=== PATIENT | female | born 2000 | race Caucasian/White ===

== ENCOUNTER → 2021-11-05 09:23 | Outpatient (CLI) | payer OTHER, SELFPAY ==
[2021-11-05 10:45] LABS: Add Manual Diff / Slide Review NO; Basophils Absolute Auto 0 /uL (0-100); Basophils Percent Auto 0.6 % (0-2); Eosinophils Absolute Auto 100 /uL (0-450); Eosinophils Percent Auto 2.3 % (2-4); Hematocrit 42.4 % (36-46); Hemoglobin 14.7 g/dL (12.0-16.0); Lymphocytes Absolute Auto 1200 /uL (1100-4500); Lymphocytes Percent Auto 27.7 % (25-40); Mean Corpuscular HGB Conc 34.6 % (30-36); Mean Corpuscular Hemoglobin 30.8 PG (26-34); Mean Corpuscular Volume 88.8 fL (80-100); Monocytes Absolute Auto 400 /uL (0-900); Monocytes Percent Auto 8.7 % (3-14); Neutrophils Absolute Auto 2700 /uL (1500-7000); Neutrophils Percent Auto 60.7 % (50-75); Platelet Count 238 X10^3/uL (150-400); Red Blood Cell Count 4.78 X10^6/uL (4.0-5.2); Red Cell Distribution Width 12.9 % (11.6-14.8); White Blood Cell Count 4.4 X10^3/uL (4.5-11.0)
[2021-11-05 11:03] LABS: Alanine Aminotransferase 14 IU/L (<35); Albumin 4.8 g/dL (3.5-5.0); Albumin Globulin Ratio 1.4 (1.0-2.8); Alkaline Phosphatase 46 U/L (38-126); Aspartate Aminotransferase 26 IU/L (14-36); BUN Creatinine Ratio 24.1 (6-22); Bilirubin Total 0.8 mg/dL (0.2-1.3); Blood Urea Nitrogen 14 mg/dL (7-17); C-Reactive Protein Quant < 0.5 mg/dL (<1.0); Calcium 9.4 mg/dL (8.4-10.2); Carbon Dioxide 27 mmol/L (22-32); Chloride 103 mmol/L (98-107); Estimated Glomerular Filt Rate > 60.0 mL/min (>60); Globulin 3.4 g/dL (1.7-4.1); Glucose 79 mg/dL (70-100); HEMOLYSIS < 15 (0-50); Potassium 4.2 mmol/L (3.4-5.1); Sodium 138 mmol/L (137-145); Total Protein 8.2 g/dL (6.3-8.2)
[2021-11-05 11:07] LABS: Rheumatoid Factor < 8.6 IU/mL (<12.0)
[2021-11-05 11:14] LABS: Erythrocyte Sedimentation Rate 3 MM/HR (0-20)
[2021-11-05 11:16] LABS: Vitamin D 25 Hydroxy (D3) 25.7 ng/mL (30.0-100.0)
[2021-11-05 11:53] LABS: TSH w/ Reflex to FT4 1.27 uIU/mL (0.47-4.68)
[2021-11-07 16:07] LABS: ANA Screen, IFA Positive (.)
[2021-11-08 00:54] LABS: CCP Antibodies IgG/IgA 6 units (0-19)
== END ==
PROVIDERS: PCP Registered Nurse Diabetes Educator; Referring Provider Registered Nurse Diabetes Educator; Visit Provider Registered Nurse Diabetes Educator
DX: M25.50 Pain in unspecified joint (principal); M79.10 Myalgia, unspecified site; R21 Rash and other nonspecific skin eruption
CPT/HCPCS: 36415; 80053; 82306; 84443; 85025; 85651; 86038; 86140; 86200; 86430

== ENCOUNTER → 2022-02-04 09:54 | Outpatient (CLI) | payer OTHER, SELFPAY ==
--- NOTE | 2022-02-04 09:56 | DI.US.S_ITS ---
PROCEDURE: US PELVIC LIMITED INDICATIONS: EVAL R GROIN LYMPH NODE ENLARGEMENT TECHNIQUE: Real-time transabdominal scanning was performed of the area of clinical concern of the pelvis, with image documentation. Color Doppler was also utilized. COMPARISON: None. FINDINGS: At the area of clinical concern within the right groin, multiple prominent lymph nodes are seen, with the largest measuring 18 x 6 x 13 mm. The lymph nodes demonstrate a normal appearance, with well preserved fatty sintia. No abnormal vascularity is seen. IMPRESSION: Prominent right groin lymph nodes are seen, without cyrus enlargement. We strive to produce accurate, complete, and clear reports of imaging services. To assist us in improving patient care, this report was composed using standard report templates and voice recognition software. Therefore, it may contain abnormal punctuation, insertions and/or omissions. Occasional wrong-word or sound-alike substitutions may occur. Though we review the report and make efforts to correct it, we do recommend that the report be read carefully in proper context to recognize any text inaccuracies. Dictated by: Solomon Salas M.D. on 02/04/2022 at 12:27 Approved by: Solomon Salas M.D. on 02/04/2022 at 12:28
== END ==
PROVIDERS: PCP Registered Nurse Diabetes Educator; Referring Provider Registered Nurse Diabetes Educator; Visit Provider Registered Nurse Diabetes Educator
DX: R59.1 Generalized enlarged lymph nodes (principal)
CPT/HCPCS: 76857

== ENCOUNTER → 2022-02-23 16:06 | Outpatient (CLI) | payer OTHER, SELFPAY ==
[2022-02-23 16:44] LABS: Add Manual Diff / Slide Review NO; Basophils Absolute Auto 0 /uL (0-100); Basophils Percent Auto 0.9 % (0-2); Eosinophils Absolute Auto 100 /uL (0-450); Eosinophils Percent Auto 2.5 % (2-4); Hemoglobin 14.2 g/dL (12.0-16.0); Lymphocytes Absolute Auto 1600 /uL (1100-4500); Lymphocytes Percent Auto 31.1 % (25-40); Mean Corpuscular HGB Conc 33.9 % (30-36); Mean Corpuscular Hemoglobin 30.5 PG (26-34); Mean Corpuscular Volume 89.9 fL (80-100); Monocytes Absolute Auto 400 /uL (0-900); Monocytes Percent Auto 8.1 % (3-14); Neutrophils Absolute Auto 2900 /uL (1500-7000); Neutrophils Percent Auto 57.4 % (50-75); Platelet Count 292 X10^3/uL (150-400); Red Blood Cell Count 4.67 X10^6/uL (4.0-5.2); Red Cell Distribution Width 12.8 % (11.6-14.8); White Blood Cell Count 5.1 X10^3/uL (4.5-11.0)
[2022-02-23 17:22] LABS: Vitamin D 25 Hydroxy (D3) 40.5 ng/mL (30.0-100.0)
== END ==
PROVIDERS: PCP Registered Nurse Diabetes Educator; Referring Provider Registered Nurse Diabetes Educator; Visit Provider Registered Nurse Diabetes Educator
DX: R59.1 Generalized enlarged lymph nodes (principal); E55.9 Vitamin D deficiency, unspecified
CPT/HCPCS: 36415; 82306; 85025

== ENCOUNTER → 2022-03-09 15:41 | Outpatient (CLI) | payer OTHER, SELFPAY ==
[2022-03-09 18:00] LABS: COVID19 -Nasal RAPID Negative (Negative)
== END ==
PROVIDERS: PCP Registered Nurse Diabetes Educator; Visit Provider Surgery
DX: Z20.822 Contact with and (suspected) exposure to COVID-19 (principal); Z01.812 Encounter for preprocedural laboratory examination
CPT/HCPCS: 87635; C9803

== ENCOUNTER 2022-03-10 14:31 | Day surgery (SDC) | payer OTHER, SELFPAY ==
[2022-03-04 14:23] VITALS: BMI 20.9
[2022-03-10] VITALS (7 sets, daily range): BP systolic 94–126; BP diastolic 54–85; PULSE 59–99; RESP 12–16; TEMP 36.6–37.2; O2SAT 96–99; BMI 20.9
--- NOTE | 2022-03-10 | PATH_ITS ---
[facility] Accession Number: [id number] No. of containers..02 Tissue 04 Unknown Storage/container code(s) . 01 Material submitted: . PART A: lymph node - RIGHT GROIN LYMPH NODE (FORMALIN) PART B: lymph node - RIGHT GROIN LYMPH NODE (B-FIX) . 01 Diagnosis: A,B. Right Groin Lymph Node; Biopsy and Touch Prep Slides: Benign lymph node with reactive sinus histiocytosis, see microscopic description. Negative for granulomatous or suppurative inflammation. Negative for malignancy. MRV 03/16/2022 1505 Local . 01 Electronically signed: . Earnest Leiva MD, Pathologist NPI- [id number] . 01 Gross description: . A. Received in formalin labeled with the patient's name and right groin lymph node consists of a johnson lymph node candidate measuring 0.8 x 0.5 x 0.4 cm and is bisected and submitted entirely in cassette A1. ([id number]) B. Received in B Fix fixative, labeled with the patient's name and lymph node biopsy consists of a johnson lymph node candidate with a small amount of attached adipose measuring 1.1 x 0.9 x 0.8 cm. The specimen is bisected and submitted entirely in cassette B1. ([id number]) /MRV 03/12/2022 1706 Local . 01 Microscopic: . Examination of the lymph node reveals reactive features: open sinuses with reactive histiocytosis, and follicles with reactive germinal centers. There are scattered histocytes and pigment-laden macrophages (favor tattoo pigment). Atypical or large lymphocytes and Hodgkin cells/Hodgkin-like cells are not identified. Granulomas are not present. Suppurative inflammation or necrosis not seen. . To better evaluate the architecture and better characterize the lymphocyte populations, a panel of immuostains is performed with the following results: . CD3: T lymphocytes positive. CD20: B lymphocytes positive. CD15: Small myeloid cells and macrophages positive, negative for Hogdkin cells. CD30: Activated lymphocytes positive, negative for Hodgkin cells. CD68: Histiocytes positive. BCL6: Lymphoid follicles positive. BCL2: Germinal centers of the reactive follicles negative. Proliferation marker Ki-67: Overall low (increased, limited within the reactive germinal centers). . Concurrent flow cytometry did not identify definitive diagnostic immunophenotypic abnormalities; there was no evidence of atypical B cell, NK cell, or T cell population. . Please see complete flow cytometry report #[id number] for details. . Based on morphology and immunohistochemistry (flow cytometry and immunostains), there is no malignancy. . Clinical and radiologic correlation is recommended. . * This test was developed and its performance characteristics determined by [facility]. It has not been cleared or approved by the U.S. Food and Drug Administration. The FDA has determined that such clearance or approval is not necessary. This test is used for clinical purposes. It should not be regarded as investigational or for research. . 01 Pathologist provided ICD-10: R59.0 . 01 CPT . 779852, F77510, D68974 Specimen Comment: A courtesy copy of this report has been sent to [phone] Performed at: 01 [facility] [address] [place] [address], [place], [place] [id number] MD Severo Barrett MD Phone: [phone]
[2022-03-10] MEDS: LACTATED RINGERS 1,000 ML 100 ML IV (14:56)
--- NOTE | 2022-03-10 15:27 | PM.PREOP ---
Pre-operative Note Interval Note History & Physical reviewed/Exam performed by Physician: Yes Changes to H&P: No
[2022-03-10] MEDS: CEFAZOLIN 2 GM/20 ML SYRINGE IV (15:40)
--- NOTE | 2022-03-10 15:54 | SUR.OPER ---
Supine on padded OR bed, head on pillow, arms secured on padded arm boards at <90 degrees abduction, legs uncrossed, safety belt at thigh, tape over blanket over lower legs.
[2022-03-10] MEDS: BUPIVACAINE 0.5% (PF) VIAL 30 ML INJ (16:04)
--- NOTE | 2022-03-10 16:15 | PM.OP.1 ---
Operative Date/Time/Diagnoses Date of procedure: 03/10/22 Time of procedure: 16:16 Pre-op diagnosis: lymphadenopathy of groin Post-op diagnosis: same Procedure & Clinicians Procedure: Excisional biopsy of right groin lymph node Same procedure as scheduled: Yes Indications: Right groin lymphadenopathy Surgeon: Mansoor Rodgers Anesthesia Type: General Operative Notes Findings: Enlarged lymph nodes of the right groin Specimen(s): other (Right groin lymph node) Estimated Blood Loss (mL): 10 Procedure in detail: Patient was brought to the operating room placed supine on the table. Bilateral lower extremity compression devices were applied. She received 2 g of Ancef. General anesthesia was induced she was intubated with an LMA. A time-out was performed. She was prepped and draped in sterile fashion. Incision over the right groin lymph nodes was made. The subcutaneous tissue was divided. There was a rather superficial bulky lymph node of approximately 1.5 cm. Base of the lymph node was ligated with silk suture and that was excised passed off the field as specimen. Hemostasis was achieved. The subcutaneous tissue was reapproximated with Vicryl suture and the skin closed with Monocryl followed by Dermabond. She tolerated the operation well was extubated and transferred to recovery room. Complications: none Post-operative Condition: stable Disposition: same day surgery
--- NOTE | 2022-03-10 16:54 | SUR.PHASEII ---
1645: Discharge instructions reviewed with pt and time allowed for questions. Pt denies any distress, no pain, no nausea, and desires to discharge home now. Sister updated. IV DC'd intact. Incision approximated, dressing c/d/i. Pt left unit A&Ox4 with all personal belongings via w/c to emergency entrance to meet family who will transport pt home.
== END 2022-03-10 16:49 | disposition home or self-care (01) ==
PROVIDERS: PCP Registered Nurse Diabetes Educator; Referring Provider Surgery; Visit Provider Surgery
PROC: (CPT 38531; principal; 2022-03-10 16:00)
DX: R59.0 Localized enlarged lymph nodes (principal); F17.200 Nicotine dependence, unspecified, uncomplicated
CPT/HCPCS: 38531; 81025; J0690; J1100; J1885; J2250; J2405; J2704; J3010

== ENCOUNTER → 2022-08-24 10:45 | Outpatient (CLI) | payer OTHER, SELFPAY ==
[2022-08-24 18:36] LABS: Urine N gonorrhoeae NOT DETECTED
[2022-08-24 18:46] LABS: Urine Chlamydia NOT DETECTED
== END ==
PROVIDERS: PCP Registered Nurse Diabetes Educator; Visit Provider Obstetrics & Gynecology
DX: Z34.81 Encounter for supervision of other normal pregnancy, first trimester (principal); Z3A.09 9 weeks gestation of pregnancy
CPT/HCPCS: 87491; 87591

== ENCOUNTER 2022-10-06 09:56 | Outpatient (RCR) | payer OTHER, SELFPAY ==
--- NOTE | 2022-10-06 16:45 | PT.OPPOC ---
Physical, Occupational & Speech Therapy At [facility] Current Diagnoses Pain in unspecified hip (10/06/22) Low back pain, unspecified (10/06/22) Other specified related conditions, second trimester (10/06/22) Other specified related conditions, unspecified trimester (10/06/22) Visit Care Team Role Provider Type LEXIS Wolf Family Provider Advanced Director Of Solutions Architecture Primary Care Provider Specialty: Medical Address: [address] [place] [address], [id number] Email: [email or web address] Bhavna Jett MD Attending Provider Physician Referring Provider Specialty: Gynecology TOY ASSEMBLER Obstetrics Address: [address] [place] [address], [id number] Email: [email or web address] Plan Of Care PT-OP-T Assessment and Plan Start: 10/06/22 09:43 Freq: Status: Active Protocol: Document 10/06/22 10:30 [facility] (Rec: 10/06/22 11:01 [facility] [id number]) Physical Therapy Assessment Rehab Potential Rehabilitation Potential Excellent Evaluation Complexity Number of Personal Factors/Comorbidities 0 Number of Body Systems Impaired 1-2 Clinical Presentation at Evaluation Stable Impairments Impairments Activity Tolerance,Functional Mobility,Pain,ROM,Soft Tissue Mobility,Strength Other Impairments pubic symphysis pain Goals 3 Impairment Tatiana lacks a HEP for her core during Prison Guard Goal (LTG) Tatiana is independent with a home program to help minimize pain to the pubic bone and separation during her and post LTG Duration 12 weeks 2 Impairment Decreased SI stability in Short Term Goal (STG) Tatiana is educated in SI and pubic symphysis stabilization exercises for STG Duration 5 weeks 1 Impairment pubic symphysis pain limiting walking and lifting Short Term Goal (STG) pt is fitting with a SI lock belt to help stabilize the pubic bone and SI joint during STG Duration 1 week Assessment Summary Assessment Tatiana is a 22 year old female 3 para 1 referred to PT with pubic bone pain and separation during . She is currently 15 1/2 weeks gestation and is starting to feel the pubic symphysis pain that she reports feeling with her first full term . She reports that pubic symptoms came on in the latera part of her third trimester. She would like to be fitted for a SI belt to help alleviate pain and to avoid further symptoms . 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 Left leg is longer than right in supine. She does have tenderness to the right pubic bone with palpation. She was educated in both pelvic floor bracing and Transverse abdominal bracing to help stabilize the pubic bone and SI joint. Body mechanics education was given to Tatiana to avoid undue stress to the pubic bone. Tatiana was fitted with a size medium SI lock belt and she could feel good relief with the belt. Tatiana does have further visits scheduled however she didn't know if she would need them. She may benefit from further stabilization and she will let us know should she wish to continue with PT. Physical Therapy Plan Frequency and Duration Frequency of Treatment 1x/Week Duration of treatment (weeks) 12 Plan of Care Start Date 10/06/22 Plan of Care End Date 12/29/22 Therapeutic Interventions Therapeutic Interventions Home Exercise Program, Neuromuscular Re-education, Patient/Caregiver Education, Self-Care/Home Management, Therapeutic Exercises Next Visit Focus/Plan Next Note Type Treatment Note Next Visit Plan review TA bracing and pelvic floor bracing exercises, recheck leg length and how SI belt is doing to help relieve pain, review body mechanics for ADL's to minimize strain to the pubic bone, progress exercises if Tatiana can tolerate. Plan of Care Dates Plan of Care Start Date 10/06/22 Plan of Care End Date 12/29/22 Electronically Signed by: Lois Manuel, PT 10/07/22 5050 If you are in agreement with this Plan of Care, please return a signed and dated copy. I have reviewed this Plan of Care and certify that the skilled therapy services above are required to meet the patient?s needs. Physician Signature Date Printed Name and Credentials Clinical Instructor Signature Printed Name and Credentials
--- NOTE | 2022-10-06 16:45 | PT.OIE ---
Current Diagnoses Pain in unspecified hip (10/06/22) Low back pain, unspecified (10/06/22) Other specified related conditions, second trimester (10/06/22) Other specified related conditions, unspecified trimester (10/06/22) Past Medical History (Last Updated 08/09/22 @ 10:41 by Barbara Fuentes, ROMAIN) Anxiety Asthma (~2004) Chronic back pain (~2017) Easy bruisability Eczema (~1998) Fibromyalgia (~2017) Headache (~2015) Migraines (~2015) induced hypertension Vitiligo (~2019) Past Surgical History (Last Updated 08/09/22 @ 10:41 by Barbara Fuentes, ROMAIN) H/O lymph node biopsy Visit Care Team Role Provider Type LEXIS Wolf Family Provider Advanced Bee Raiser Primary Care Provider Specialty: Medical Address: [address] [place] [address] Email: [email or web address] Bhavna Jett MD Attending Provider Physician Referring Provider Specialty: Gynecology SAFETY ENGINEER Obstetrics Address: [address] [place] [address], [facility] Email: [email or web address] Physical Therapy Initial Evaluation PT-OP-A Visit Information Start: 10/06/22 09:43 Freq: Status: Active Protocol: Document 10/06/22 10:30 [facility] (Rec: 10/06/22 13:57 [facility] [id number]) Out-Patient Physical Therapy Visit Information Visit Information Visit Type Initial Evaluation Visit Start Time 10:30 Visit Stop Time 11:10 Total Visit Minutes 40 Visit Number 1 Evaluation Information Evaluation Date 10/06/22 PT-OP-B Current Condition Start: 10/06/22 09:43 Freq: Status: Active Protocol: Document 10/06/22 10:30 [facility] (Rec: 10/06/22 11:01 [facility] [id number]) Current Condition History of Current Condition Onset Date with Current Complaints pubic symphysis pain and limited mobility due to pain History of Current Condition Tatiana is 3 para 1 and currently 15.5 weeks experiencing pubic symphysis pain. With her son pain didn't start until late second trimester. With this her pain starting already she feels pain at the pubic bone already and it feels lke it is being seperated. She has a 30 lb 2. 5 year old and has to lift him but she notes she isn't doing any thing extra. SHe was told when she was younger that one leg was longer than the other. Tatiana would like to be fitted with a SI belt to help with her pubic pain Treatment Goals Patient/Caregiver Goals Goals include reducing c/o pubic pain Current Functional Impairments (Reported) Functional Limitations- ADL's pt is increased with lifting activities Functional Limitations- Mobility/Gait pain prevents pt from walingmore than 1 mile PT-OP-C Subjective Start: 10/06/22 09:43 Freq: Status: Active Protocol: Document 10/06/22 10:30 [facility] (Rec: 10/07/22 16:45 [facility] [id number]) Patient Questionnaires Oswestry Low Back Index Oswestry Score 11 Oswestry Impairment 1 to 19% Impaired (Score 1-19) OP-PT Pain Assessment Pain Assessment Grid Paper Pain Assessment Grid Completed Yes Location pubic symphysis Intensity 5 PT-OP-F Manual Assessment Start: 10/06/22 09:43 Freq: Status: Active Protocol: Document 10/06/22 10:30 [facility] (Rec: 10/07/22 16:45 [facility] [id number]) Manual Assessments Joint Mobility Assessment Joint Mobility Assessment instability of the pubic symphysis and SI joint with + ASLR test left leg is longer than right in supine PT-OP-G Mobility & Gait Start: 10/06/22 09:43 Freq: Status: Active Protocol: Document 10/06/22 10:30 [facility] (Rec: 10/07/22 16:45 [facility] [id number]) OP Mobility Evaluation Bed Mobility Supine to and from Sit pt has pain and needs to roll to her side to side up as to avoid undue strain to the pubic symphysis Stair Climbing Evaluation Comments Stair Climbing Comments pain with stairs PT-OP-J Posture/Palpation/Skin Start: 10/06/22 09:43 Freq: Status: Active Protocol: Document 10/06/22 10:30 [facility] (Rec: 10/07/22 16:45 [facility] [id number]) Palpation Assessment Location right pubic bone Palpation Location right pubic bone Palpation Findings Tenderness PT-OP-Q Treatments Start: 10/06/22 09:43 Freq: Status: Active Protocol: Document 10/06/22 10:30 [facility] (Rec: 10/06/22 11:14 [facility] [id number]) Therapeutic Exercises Supine Exercises supine ball squeeze with pelvic floor activation Side bilateral Reps/Minutes x 10 reps holding 5 seconds with pelvic floor engagement Comments shown in supine but pt can also do sitting once supine is not comfortable Other Exercises quadruped TA draw in Reps/Minutes x 10 reps working up to 10 second hold time Self-Care/Home Management Treatment Education Patient Education Joint Protection Other Education pt was educated on body mechanics to help decrease strain to the SI joint and pubic bone, she was fitted with a size medium SI belt for assistance with SI stabilization and pubic stability. Tatiana was also educated with a HEP for inner core stabiilzation exercises to help with SI stability PT-OP-T Assessment and Plan Start: 10/06/22 09:43 Freq: Status: Active Protocol: Document 10/06/22 10:30 [facility] (Rec: 10/06/22 11:01 [facility] [id number]) Physical Therapy Assessment Rehab Potential Rehabilitation Potential Excellent Evaluation Complexity Number of Personal Factors/Comorbidities 0 Number of Body Systems Impaired 1-2 Clinical Presentation at Evaluation Stable Impairments Impairments Activity Tolerance,Functional Mobility,Pain,ROM,Soft Tissue Mobility,Strength Other Impairments pubic symphysis pain Goals 3 Impairment Tatiana lacks a HEP for her core during Horticultural Special[employer] Grower Field Goal (LTG) Tatiana is independent with a home program to help minimize pain to the pubic bone and seperation during her and post LTG Duration 12 weeks 2 Impairment Decreased SI stability in Short Term Goal (STG) Tatiana is educated in SI and pubic symphysis stabilization exercises for STG Duration 5 weeks 1 Impairment pubic symphysis pain limiting walking and lifting Short Term Goal (STG) pt is fitting with a SI lock belt to help stabilize the pubic bone and SI joint during STG Duration 1 week Assessment Summary Assessment Tatiana is a 22 year old female 3 para 1 referred to PT with pubic bone pain and seperation during . She is currently 15 1/2 weeks gestation and is starting to feel the pubic symphysis pain that she reports feeling with her first full term . She reports that pubic symptoms came on in the latera part of her third trimester. She would like to be fitted for a SI belt to help alliviate pain and to avoid further symptoms . 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 Left leg is longer than right in supine. She does have tenderness to the right pubic bone with palpation. She was educated in both pelvic floor bracing and Transverse abdominal bracing to help stabilize the pubic bone and SI joint. Body mechanics education was given to Tatiana to avoid undue stress to the pubic bone. Tatiana was fitted with a size medium SI lock belt and she could feel good relief with the belt. Tatiana does have further visits scheduled however she didn't know if she would need them. She may benefit from further stabilization and she will let us know should she wish to continue with PT. Physical Therapy Plan Frequency and Duration Frequency of Treatment 1x/Week Duration of treatment (weeks) 12 Plan of Care Start Date 10/06/22 Plan of Care End Date 12/29/22 Therapeutic Interventions Therapeutic Interventions Home Exercise Program, Neuromuscular Re-education, Patient/Caregiver Education, Self-Care/Home Management, Therapeutic Exercises Next Visit Focus/Plan Next Note Type Treatment Note Next Visit Plan review TA bracing and pelvic floor bracing exercises, recheck leg length and how SI belt is doing to help relieve pain, review body mechanics for ADL's to minimize strain to the pubic bone, progress exercises if Tatiana can tolerate.
--- NOTE | 2022-11-16 17:04 | PT.OPDS ---
Current Diagnoses Pain in unspecified hip (10/06/22) Low back pain, unspecified (10/06/22) Other specified related conditions, second trimester (10/06/22) Other specified related conditions, unspecified trimester (10/06/22) Visit Care Team Role Provider Type LEXIS Wolf Family Provider Advanced Hr Director Primary Care Provider Specialty: Medical Address: [address] [place] [address] Email: [email or web address] Bhavna Jett MD Attending Provider Physician Referring Provider Specialty: Gynecology [employer] [facility] Address: [address] [place] [address], [id number] Email: [email or web address] Visit Number Visit Number 1 Discharge Summary PT-OP-B Current Condition Start: 10/06/22 09:43 Freq: Status: Active Protocol: Document 10/06/22 10:30 [facility] (Rec: 10/06/22 11:01 [facility] [id number]) Current Condition History of Current Condition Onset Date with Current Complaints pubic symphysis pain and limited mobility due to pain History of Current Condition aTtiana is 3 para 1 and currently 15.5 weeks experiencing pubic symphysis pain. With her son pain didn't start until late second trimester. With this her pain starting already she feels pain at the pubic bone already and it feels lke it is being seperated. She has a 30 lb 2. 5 year old and has to lift him but she notes she isn't doing any thing extra. SHe was told when she was younger that one leg was longer than the other. Tatiana would like to be fitted with a SI belt to help with her pubic pain Treatment Goals Patient/Caregiver Goals Goals include reducing c/o pubic pain Current Functional Impairments (Reported) Functional Limitations- ADL's pt is increased with lifting activities Functional Limitations- Mobility/Gait pain prevents pt from walingmore than 1 mile PT-OP-C Subjective Start: 10/06/22 09:43 Freq: Status: Active Protocol: Document 10/06/22 10:30 [facility] (Rec: 10/07/22 16:45 [facility] [id number]) Patient Questionnaires Oswestry Low Back Index Oswestry Score 11 Oswestry Impairment 1 to 19% Impaired (Score 1-19) OP-PT Pain Assessment Pain Assessment Grid Paper Pain Assessment Grid Completed Yes Location pubic symphysis Intensity 5 PT-OP-F Manual Assessment Start: 10/06/22 09:43 Freq: Status: Active Protocol: Document 10/06/22 10:30 [facility] (Rec: 10/07/22 16:45 [facility] [id number]) Manual Assessments Joint Mobility Assessment Joint Mobility Assessment instability of the pubic symphysis and SI joint with + ASLR test left leg is longer than right in supine PT-OP-G Mobility & Gait Start: 10/06/22 09:43 Freq: Status: Active Protocol: Document 10/06/22 10:30 [facility] (Rec: 10/07/22 16:45 [facility] [id number]) OP Mobility Evaluation Bed Mobility Supine to and from Sit pt has pain and needs to roll to her side to side up as to avoid undue strain to the pubic symphysis Stair Climbing Evaluation Comments Stair Climbing Comments pain with stairs PT-OP-J Posture/Palpation/Skin Start: 10/06/22 09:43 Freq: Status: Active Protocol: Document 10/06/22 10:30 [facility] (Rec: 10/07/22 16:45 [facility] [id number]) Palpation Assessment Location right pubic bone Palpation Location right pubic bone Palpation Findings Tenderness PT-OP-T Assessment and Plan Start: 10/06/22 09:43 Freq: Status: Active Protocol: Document 11/16/22 17:03 [facility] (Rec: 11/16/22 17:04 [facility] [id number]) Physical Therapy Assessment Assessment Summary Assessment Pt no longer required additional PT following SI belt fitting. She has cx her remaining visits and will be discharged from PT at this time. Physical Therapy Plan Discharge Physical Therapy Discharge Reasons Patient Request
== END 2022-11-17 13:13 | disposition home or self-care (01) ==
LOC: PHYS 09:56
PROVIDERS: Family Provider Registered Nurse Diabetes Educator; PCP Registered Nurse Diabetes Educator; Referring Provider Obstetrics & Gynecology; Visit Provider Obstetrics & Gynecology
DX: O26.892 Other specified pregnancy related conditions, second trimester (principal); M25.559 Pain in unspecified hip; O26.899 Other specified pregnancy related conditions, unspecified trimester; M54.50 Low back pain, unspecified
CPT/HCPCS: 97161

== ENCOUNTER → 2022-11-01 11:21 | Outpatient (CLI) | payer OTHER, SELFPAY | PROVIDERS: Family Provider Registered Nurse Diabetes Educator; PCP Registered Nurse Diabetes Educator; Visit Provider Obstetrics & Gynecology | DX: Z34.81 Encounter for supervision of other normal pregnancy, first trimester (principal) | CPT/HCPCS: 87086 ==

== ENCOUNTER → 2022-11-01 11:54 | Outpatient (CLI) | payer OTHER, SELFPAY ==
[2022-11-01 12:29] LABS: Add Manual Diff / Slide Review NO; Basophils Absolute Auto 0 /uL (0-100); Basophils Percent Auto 0.4 % (0-2); Eosinophils Absolute Auto 100 /uL (0-450); Eosinophils Percent Auto 1.2 % (2-4); Hematocrit 36.6 % (36-46); Hemoglobin 12.8 g/dL (12.0-16.0); Lymphocytes Absolute Auto 1300 /uL (1100-4500); Lymphocytes Percent Auto 15.4 % (25-40); Mean Corpuscular Hemoglobin 31.3 PG (26-34); Mean Corpuscular Volume 89.5 fL (80-100); Monocytes Absolute Auto 600 /uL (0-900); Monocytes Percent Auto 6.7 % (3-14); Neutrophils Absolute Auto 6600 /uL (1500-7000); Neutrophils Percent Auto 76.3 % (50-75); Platelet Count 319 X10^3/uL (150-400); Red Blood Cell Count 4.09 X10^6/uL (4.0-5.2); Red Cell Distribution Width 13.4 % (11.6-14.8); White Blood Cell Count 8.6 X10^3/uL (4.5-11.0)
[2022-11-01 13:46] LABS: Hepatitis B Surface Antigen NEGATIVE s/c (NEGATIVE)
[2022-11-01 13:47] LABS: HIV 1 & 2 Ab/Ag 4th Gen Combo NEGATIVE (NEGATIVE); Hep C Virus Ab w/Reflex Quant NEGATIVE s/c (NEGATIVE)
[2022-11-02 07:45] LABS: Varicella IgG Antibody 953 index (Immune >165)
[2022-11-03 03:20] LABS: RPR Screen Non Reactive (Non Reactive)
[2022-11-04 20:19] LABS: AFP, Serum 32.6 ng/mL (.); Inhibin A, Dimeric 165.48 pg/mL (.); Inhibin A, MoM 1.08 (.); Maternal Ethnicity Caucasian (.); Maternal Weight 179 lbs (.); Number of Fetuses No (.); OSBR Risk 1 IN 10000 (.); Results Report (.); Test Results *Screen Negative* (.); hCG, MoM 1.41 (.); hCG, Serum 34690 mIU/mL (.)
== END ==
PROVIDERS: Family Provider Registered Nurse Diabetes Educator; PCP Registered Nurse Diabetes Educator; Referring Provider Obstetrics & Gynecology; Visit Provider Obstetrics & Gynecology
DX: Z34.82 Encounter for supervision of other normal pregnancy, second trimester (principal); Z3A.19 19 weeks gestation of pregnancy
CPT/HCPCS: 36415; 80055; 82105; 82677; 84702; 86336; 86787; 86803; 86850; 86900; 86901; 87086; 87389

== ENCOUNTER → 2022-11-05 07:42 | Outpatient (CLI) | payer OTHER, SELFPAY ==
--- NOTE | 2022-11-05 07:43 | DI.US.S_ITS ---
PROCEDURE: US OB >= 14 WEEKS FETUS INDICATIONS: ANATOMY OUTSIDE/PRIOR DATING DATA: Last menstrual period (LMP): 06/19/2022. LMP-based estimated date of delivery (JANICE): 03/26/2023. First dating scan (date and location): 08/24/2022. Estimated date of delivery (JANICE) from first dating scan: 03/26/2023. The calculations are made using the clinical JANICE of 03/26/2023. TECHNIQUE: Real-time scanning was performed of the fetus, with image documentation and biometric measurements. COMPARISON: [facility], , OB <= 14 WEEKS FETUS, 08/24/2022, 9:33. FINDINGS: General: A single living intrauterine gestation is present. Presentation: Vertex. Placenta: Placental position is posterior , without previa. Amniotic fluid index: 15.9 cm, normal range is 5-24 cm. Single deepest vertical pocket is 4.7 cm. heart rate: 133 beats per minute. Maternal cervical canal: 4.5 cm long. Normal lower limit is 2.5 cm. Anterior lower uterine segment intramural fibroid measuring 0.9 x 0.8 x 0.5 cm biometrics: Biparietal diameter: 4.9 cm, 20 weeks 6 days Head circumference: 17.6 cm, 20 weeks 1 day Abdominal circumference: 14.9 cm, 20 weeks 1 day Femur length: 3.4 cm, 20 weeks 6 days Clinically estimated gestational age: 19 weeks 6 days Composite gestational age from present scan: 20 weeks 4 days Estimated weight and percentile: 353 g, 78th percentile Anatomic survey: Neuro: Ventricles are non-dilated at less than 10 mm. Cisterna magna is normal at 3-11 mm. Cerebellum is normal in size and morphology. Nuchal skin fold: Normal at less than 6 mm between 14-21 weeks gestational age. Face: Nose and lips, facial profile are normal. Spine: No evidence for spina bifida. Heart: 4-chambered heart is present, with normal ventricular outflow tracts. Diaphragm: Diaphragm is intact. Stomach: Left-sided stomach is present. Kidneys: No hydronephrosis. Normal is less than 5 mm in 2nd trimester, less than 7 mm in 3rd trimester. Cord: 3-vessel cord has orthotopic insertion. Bladder: Normal in size. Extremities: All 4 extremities identified. IMPRESSION: 1. Mcclure living intrauterine at 20 weeks 4 days based on today's ultrasound. Fetus is in the 78th percentile for weight. 2. Normal placenta and amniotic fluid. 3. Normal and complete anatomic survey. We strive to produce accurate, complete, and clear reports of imaging services. To assist us in improving patient care, this report was composed using standard report templates and voice recognition software. Therefore, it may contain abnormal punctuation, insertions and/or omissions. Occasional wrong-word or sound-alike substitutions may occur. Though we review the report and make efforts to correct it, we do recommend that the report be read carefully in proper context to recognize any text inaccuracies. Dictated by: Brennon Lyle M.D. on 11/05/2022 at 9:18 Approved by: Brennon Llye M.D. on 11/05/2022 at 9:24
== END ==
PROVIDERS: Family Provider Registered Nurse Diabetes Educator; PCP Registered Nurse Diabetes Educator; Referring Provider Obstetrics & Gynecology; Visit Provider Obstetrics & Gynecology
DX: Z34.82 Encounter for supervision of other normal pregnancy, second trimester (principal); Z3A.20 20 weeks gestation of pregnancy
CPT/HCPCS: 76811

== ENCOUNTER → 2022-12-20 08:23 | Outpatient (CLI) | payer OTHER, SELFPAY ==
[2022-12-20 10:29] LABS: GTT (PREG) 1 Hour PP 50gm Dose 83 mg/dL (76-139)
[2022-12-20 10:48] LABS: Hematocrit 34.3 % (36-46); Hemoglobin 11.7 g/dL (12.0-16.0)
== END ==
PROVIDERS: Family Provider Registered Nurse Diabetes Educator; PCP Registered Nurse Diabetes Educator; Referring Provider Obstetrics & Gynecology; Visit Provider Obstetrics & Gynecology
DX: Z34.82 Encounter for supervision of other normal pregnancy, second trimester (principal); Z3A.26 26 weeks gestation of pregnancy
CPT/HCPCS: 36415; 82950; 85014; 85018

== ENCOUNTER 2022-12-28 17:53 | Outpatient (CLI) | payer OTHER, SELFPAY | END 2022-12-28 19:01 | disposition home or self-care (01) | LOC: OB 01-03 15:53 | PROVIDERS: Family Provider Registered Nurse Diabetes Educator; PCP Registered Nurse Diabetes Educator; Referring Provider Obstetrics & Gynecology; Visit Provider Obstetrics & Gynecology | DX: O60.02 Preterm labor without delivery, second trimester (principal); Z3A.27 27 weeks gestation of pregnancy | CPT/HCPCS: 59025; 76817; G0378; G0379 ==

== ENCOUNTER 2022-12-29 16:07 | Observation (INO) | payer OTHER, SELFPAY ==
--- NOTE | 2022-12-29 16:23 | DI.US.S_ITS ---
PROCEDURE: US OB LIMITED INDICATIONS: TO CHECK FOR LABOR, CERVICAL LENGTH OUTSIDE/PRIOR DATING DATA: Last menstrual period (LMP): 06/19/2022. LMP-based estimated date of delivery (JANICE): 03/26/2023. First dating scan (date and location): 08/24/2022. Estimated date of delivery (JANICE) from first dating scan: 03/26/2023. The calculations are made using the working JANICE of 03/26/2020. TECHNIQUE: Real-time scanning was performed of the fetus, with image documentation and biometric measurements. Biophysical profile was also obtained. Endovaginal scanning: Not performed COMPARISON: [facility], , US OB >= 14 WEEKS FETUS, 11/05/2022, 7:48. [facility], , US OB <= 14 WEEKS FETUS, 08/24/2022, 9:33. , PELVIC LIMITED, 02/04/2022, 10:14. FINDINGS: General: A single living intrauterine gestation is present. Presentation: Breech. Placenta: Posterior without previa. Amniotic fluid index: 22.6 cm, normal range is 5-24 cm. Single deepest vertical pocket is 6.9 cm. heart rate: 133 beats per minute. Maternal cervical canal: 4.1 cm long. Normal lower limit is 2.5 cm. Trace fluid within the endocervical canal. biometrics: Not performed. Clinically estimated gestational age: 27 weeks 4 days IMPRESSION: 1. A single living intrauterine gestation is redemonstrated. 2. Normal cervical length measuring 4.1 cm. Trace fluid within the endocervical canal. We strive to produce accurate, complete, and clear reports of imaging services. To assist us in improving patient care, this report was composed using standard report templates and voice recognition software. Therefore, it may contain abnormal punctuation, insertions and/or omissions. Occasional wrong-word or sound-alike substitutions may occur. Though we review the report and make efforts to correct it, we do recommend that the report be read carefully in proper context to recognize any text inaccuracies. Dictated by: Deon Villarreal M.D. on 12/29/2022 at 19:13 Approved by: Deon Villarreal M.D. on 12/29/2022 at 19:16
[2022-12-29 18:29] LABS: Fetal Fibronectin Negative
== END 2022-12-29 19:05 | disposition home or self-care (01) ==
PROVIDERS: Admitting Provider Obstetrics & Gynecology; Family Provider Registered Nurse Diabetes Educator; PCP Registered Nurse Diabetes Educator; Referring Provider Obstetrics & Gynecology; Visit Provider Obstetrics & Gynecology
DX: Z03.71 Encounter for suspected problem with amniotic cavity and membrane ruled out (principal); O26.892 Other specified pregnancy related conditions, second trimester; R10.2 Pelvic and perineal pain; N89.8 Other specified noninflammatory disorders of vagina; Z3A.27 27 weeks gestation of pregnancy
CPT/HCPCS: 59025; 59050; 76815; 76817; 82731; G0378; G0379

== ENCOUNTER → 2023-01-12 12:52 | Outpatient (CLI) | payer OTHER, SELFPAY ==
[2023-01-12 13:13] LABS: Appearance Urine UA CLEAR; Bilirubin Urine UA NEGATIVE (NEGATIVE); Color Urine UA YELLOW; Glucose Urine UA NEGATIVE (Negative); Ketones Urine UA NEGATIVE (NEGATIVE); Leukocyte Esterase Urine UA NEGATIVE (NEGATIVE); Nitrite Urine UA NEGATIVE (Negative); Occult Blood Urine UA NEGATIVE (Negative); Protein Urine UA NEGATIVE (Negative); Urobilinogen Urine UA 0.2 E.U./dL (0.2)
[2023-01-12 13:14] LABS: pH Urine UA 6.5 (4.5-8.0)
[2023-01-12 13:24] LABS: Bacteria Urine Moderate (10-30); Culture Indicated Urine Cult Not Indicated; RBC Urine 1-5/HPF (0-5/HPF); Squamous Epithelial Cell Urine 5-10 /HPF (0-5/HPF); WBC Urine 1-5/HPF (0-5/HPF)
[2023-01-12 14:41] LABS: Alanine Aminotransferase 25 IU/L (<35); Albumin 3.9 g/dL (3.5-5.0); Albumin Globulin Ratio 1.1 (1.0-2.8); Alkaline Phosphatase 92 U/L (38-126); Aspartate Aminotransferase 27 IU/L (14-36); Bilirubin Total 0.2 mg/dL (0.2-1.3); Bilirubin Unconjugated 0.1 mg/dL (0.0-1.1); Globulin 3.6 g/dL (1.7-4.1); HEMOLYSIS < 15 (0-50); Total Protein 7.5 g/dL (6.3-8.2)
[2023-01-14 09:35] LABS: Bile Acids 2.9 umol/L (0.0-10.0)
== END ==
PROVIDERS: Family Provider Registered Nurse Diabetes Educator; PCP Registered Nurse Diabetes Educator; Referring Provider Obstetrics & Gynecology; Visit Provider Obstetrics & Gynecology
DX: L29.9 Pruritus, unspecified (principal); O99.719 Diseases of the skin and subcutaneous tissue complicating pregnancy, unspecified trimester; R30.0 Dysuria
CPT/HCPCS: 36415; 80076; 81001; 82239

== ENCOUNTER 2023-02-26 10:47 | Observation (INO) | payer OTHER, SELFPAY ==
[2023-02-26] MEDS: LACTATED RINGERS 1,000 ML 999 ML IV ×2 (11:45→12:52)
[2023-02-26] MEDS: ONDANSETRON 4 MG/2 ML INJ IV (12:01)
[2023-02-26 12:07] LABS: Add Manual Diff / Slide Review NO; Basophils Absolute Auto 0 /uL (0-100); Basophils Percent Auto 0.2 % (0-2); Eosinophils Absolute Auto 0 /uL (0-450); Eosinophils Percent Auto 0.5 % (2-4); Hematocrit 35.5 % (36-46); Hemoglobin 12.3 g/dL (12.0-16.0); Lymphocytes Absolute Auto 1000 /uL (1100-4500); Lymphocytes Percent Auto 11.4 % (25-40); Mean Corpuscular HGB Conc 34.6 % (30-36); Mean Corpuscular Hemoglobin 28.7 PG (26-34); Mean Corpuscular Volume 83.1 fL (80-100); Monocytes Absolute Auto 900 /uL (0-900); Monocytes Percent Auto 9.6 % (3-14); Neutrophils Absolute Auto 7200 /uL (1500-7000); Neutrophils Percent Auto 78.3 % (50-75); Platelet Count 276 X10^3/uL (150-400); Red Blood Cell Count 4.27 X10^6/uL (4.0-5.2); Red Cell Distribution Width 15.1 % (11.6-14.8); White Blood Cell Count 9.2 X10^3/uL (4.5-11.0)
[2023-02-26 12:13] LABS: Alanine Aminotransferase 33 IU/L (<35); Albumin 3.9 g/dL (3.5-5.0); Albumin Globulin Ratio 1.1 (1.0-2.8); Alkaline Phosphatase 154 U/L (38-126); Aspartate Aminotransferase 38 IU/L (14-36); BUN Creatinine Ratio 18.9 (6-22); Bilirubin Total 0.6 mg/dL (0.2-1.3); Blood Urea Nitrogen 7 mg/dL (7-17); Calcium 9.2 mg/dL (8.4-10.2); Carbon Dioxide 21 mmol/L (22-32); Chloride 104 mmol/L (98-107); Estimated Glomerular Filt Rate > 60 mL/min (>60); Globulin 3.5 g/dL (1.7-4.1); Glucose 84 mg/dL (70-100); HEMOLYSIS < 15 (0-50); Potassium 3.7 mmol/L (3.4-5.1); Sodium 135 mmol/L (137-145); Total Protein 7.4 g/dL (6.3-8.2)
[2023-02-26 14:44] LABS: Appearance Urine UA CLEAR; Bilirubin Urine UA NEGATIVE (NEGATIVE); Color Urine UA YELLOW; Glucose Urine UA NEGATIVE (Negative); Ketones Urine UA 1+ (NEGATIVE); Leukocyte Esterase Urine UA NEGATIVE (NEGATIVE); Nitrite Urine UA NEGATIVE (Negative); Occult Blood Urine UA NEGATIVE (Negative); Protein Urine UA NEGATIVE (Negative); Urobilinogen Urine UA 0.2 E.U./dL (0.2)
[2023-02-26 14:45] LABS: pH Urine UA 6.5 (4.5-8.0)
[2023-02-26 14:51] LABS: Bacteria Urine None Seen; Culture Indicated Urine Cult Not Indicated; RBC Urine None Seen (0-5/HPF); Squamous Epithelial Cell Urine 1-5 /HPF (0-5/HPF); WBC Urine 0-1/HPF (0-5/HPF)
[2023-02-26 15:00] LABS: Strep Grp B PCR POS for Grp B Strep
--- NOTE | 2023-02-26 15:32 | PM.OBTRLD ---
Visit Information Visit Information Date of evaluation: 02/26/23 Primary OB Provider: Bhavna Jett On-call OB Provider: Homa Greenwood Reason for Evaluation: Yes rule out labor Comments/Additional reasons for admission: 23YO @ [id number] here for evaluation of contractions. Had diarrhea all day yesterday and nausea and vomiting last night. Remains nauseous and unable to tolerate much PO liquid. Has been feeling uncomfortable, regular cramping all morning, described as not painful, but worse than her normal BH ctx. No vaginal bleeding or leaking of fluid. Had a CE in clinic and was told she's 3cm dilated and is worried about the possibility of labor. Routine care w/ Dr. Jett. Vital Signs Vital Signs: BP: 128/70 HR: 79bpm RR: 18 T: 36.8C Temporal PFSH Medical History Anxiety Asthma (~2004) Chronic back pain (~2017) Easy bruisability Eczema (~1998) Fibromyalgia (~2017) Headache (~2015) Migraines (~2015) induced hypertension Vitiligo (~2019) Surgical History H/O lymph node biopsy Family History Father Deepika's disease Mother Hypertension Grandmother Hypertension Stroke Graves disease Aneurysm Grandfather Aneurysm Social History marital status: number of children: 1 household members: spouse and children lives independently: Yes housing: [facility] ([facility]) pets and animals: No education level: high school occupational status: unemployed current occupational exposures/hazards: No special rayna needs: No travel history: over 6 months ago seatbelt use: always water heater temp set < 120 deg: Yes working smoke detector in home: Yes fire extinguisher in home: Yes carbon monox detector in home: Yes firearms in home: Yes firearms unloaded and locked: Yes do you feel safe at home: Yes Smoking Status: Former smoker (Quit vaping in 2021) second hand exposure: No alcohol intake: former (rarely when not ) substance use type: does not use during the past year weight has: other (Wt has fluctuated, stable ~6 months at healthy weight) well-balanced diet: daily or most days daily servings fruits/ve-4 caffeine: Yes (1 cup/day, aware of 200 mg limit) Type(s) of exercise: walking Review of Systems Review of Systems ROS: Yes All systems reviewed with the patient and are negative except as otherwise documented Exam Vital Signs (past 8 hours): see above Objective Labs 02/26/23 11:35 02/26/23 11:35 Labs: Laboratory Results - last 24 hr 02/26/23 02/26/23 02/26/23 11:35 11:35 11:35 WBC 9.2 RBC 4.27 Hgb 12.3 Hct 35.5 L MCV 83.1 MCH 28.7 MCHC 34.6 RDW 15.1 H Plt Count 276 Neut % (Auto) 78.3 H Lymph % (Auto) 11.4 L Rich % (Auto) 9.6 Eos % (Auto) 0.5 L Baso % (Auto) 0.2 Neut # (Auto) 7200 H Lymph # (Auto) 1000 L Rich # (Auto) 900 Eos # (Auto) 0 Baso # (Auto) 0 Sodium 135 L Potassium 3.7 Chloride 104 Carbon Dioxide 21 L BUN 7 Creatinine 0.37 L Estimated GFR > 60 BUN/Creatinine Ratio 18.9 Glucose 84 Calcium 9.2 Total Bilirubin 0.6 AST 38 H ALT 33 Alkaline Phosphatase 154 H Total Protein 7.4 Albumin 3.9 Globulin 3.5 Albumin/Globulin Ratio 1.1 Urine Color Urine Appearance Urine pH Ur Specific [employer] Urine Protein Urine Glucose (UA) Urine Ketones Urine Occult Blood Urine Nitrate Urine Bilirubin Urine Urobilinogen Ur Leukocyte Esterase Urine RBC Urine WBC Ur Squamous Epith Cells Urine Bacteria Ur Culture Indicated? Group B Strep (PCR) Pos for grp b strep H 02/26/23 14:25 WBC RBC Hgb Hct MCV MCH MCHC RDW Plt Count Neut % (Auto) Lymph % (Auto) Rich % (Auto) Eos % (Auto) Baso % (Auto) Neut # (Auto) Lymph # (Auto) Rich # (Auto) Eos # (Auto) Baso # (Auto) Sodium Potassium Chloride Carbon Dioxide BUN Creatinine Estimated GFR BUN/Creatinine Ratio Glucose Calcium Total Bilirubin AST ALT Alkaline Phosphatase Total Protein Albumin Globulin Albumin/Globulin Ratio Urine Color Yellow Urine Appearance Clear Urine pH 6.5 Ur Specific [employer] 1.010 Urine Protein Negative Urine Glucose (UA) Negative Urine Ketones 1+ H Urine Occult Blood Negative Urine Nitrate Negative Urine Bilirubin Negative Urine Urobilinogen 0.2 Ur Leukocyte Esterase Negative Urine RBC None seen Urine WBC 0-1/hpf Ur Squamous Epith Cells 1-5 /hpf Urine Bacteria None seen Ur Culture Indicated? Cult not indicated Group B Strep (PCR) Evaluation Evaluation Baseline heart rate: 120 Variability: Moderate (11-25) monitor accelerations: Present Monitor Decelerations: Absent Contraction Frequency (minutes): 5 Uterine Contraction Intensity: Mild Category of Tracing: Reactive Cervical dilation (cm): 1 Cervical effacement (%): 40 station: -2 Comments: CE by RN Baseline shift to 105bpm during monitoring, though this was for a short period of time during 4 hours of monitoring. FHR overall reassuring. Diagnosis, Plan/Disposition Final Diagnosis (1) Nausea/vomiting in : Status: Acute Problem details: Labs unremarkable. 2 L IVFB given and uterine cramping decreased in intensity. Nausea improved with Zofran and patient was able to keep down fluids. (2) Group beta Strep positive: Status: Acute Plan/Disposition Plan: Reassurance given for low concern for labor. Routine precautions given and recommend rest and hydration at home. aware of patient's status as she was incidentally rounding on the unit at time of triage. Follow-up in clinic as previously scheduled. OB Disposition: home
== END 2023-02-26 14:55 | disposition home or self-care (01) ==
LOC: LABOR 10:50
PROVIDERS: Admitting Provider Obstetrics & Gynecology; Family Provider Registered Nurse Diabetes Educator; PCP Registered Nurse Diabetes Educator; Referring Provider Nurse Practitioner Obstetrics & Gynecology; Visit Provider Nurse Practitioner Obstetrics & Gynecology
DX: O21.9 Vomiting of pregnancy, unspecified (principal); O99.820 Streptococcus B carrier state complicating pregnancy; Z3A.36 36 weeks gestation of pregnancy
CPT/HCPCS: 59025; 59050; 80053; 81001; 85025; 87653; 96360; G0378; G0379; J2405

== ENCOUNTER 2023-03-23 07:31 | Inpatient (IN) | payer OTHER, SELFPAY ==
[2023-03-23] MEDS: AMPICILLIN 2,000 MG in SODIUM CHLORIDE 0.9% 100 ML 200 MG IV (08:28)
[2023-03-23] MEDS: LACTATED RINGERS 1,000 ML 100 ML IV (08:28)
[2023-03-23 08:29] VITALS: BP 133/90
[2023-03-23 08:41] LABS: Add Manual Diff / Slide Review NO; Basophils Absolute Auto 0 /uL (0-100); Basophils Percent Auto 0.3 % (0-2); Eosinophils Absolute Auto 100 /uL (0-450); Eosinophils Percent Auto 0.7 % (2-4); Hematocrit 34.9 % (36-46); Hemoglobin 11.9 g/dL (12.0-16.0); Lymphocytes Absolute Auto 1100 /uL (1100-4500); Lymphocytes Percent Auto 13.4 % (25-40); Mean Corpuscular HGB Conc 34.2 % (30-36); Mean Corpuscular Hemoglobin 27.8 PG (26-34); Mean Corpuscular Volume 81.1 fL (80-100); Monocytes Absolute Auto 800 /uL (0-900); Monocytes Percent Auto 10.8 % (3-14); Neutrophils Absolute Auto 5900 /uL (1500-7000); Neutrophils Percent Auto 74.8 % (50-75); Platelet Count 271 X10^3/uL (150-400); Red Cell Distribution Width 15.3 % (11.6-14.8); White Blood Cell Count 7.8 X10^3/uL (4.5-11.0)
--- NOTE | 2023-03-23 08:51 | PM.OBHP.IH.1 ---
OB HPI Date/Time Date of admission: 03/23/23 Date Patient Seen: 03/23/23 Time Patient Seen: 08:05 History of Present Condition Chief complaint: induction JANICE Calculator Estimated Delivery Date Method Current WG Current Estimate 03/26/23 LMP (Certain) 39w 4d Other Estimates 03/24/23 Ultrasound #1 39w 6d Estimated Gestational Age (weeks): 39+4 : 3 Para: 1 care: good care, initiated at week # (9), number of visits (11) and pounds weight gain (68) Dating criteria OB: LMP confirmed by 1st trimester US Ultrasounds: normal 1st trimester US Obstetrical complications: none Medical complications OB: none Indications Indication for induction OB: other ( leaving back to deployment, LGA) Preadmission Labs Last OB Lab Results: Blood Type AB Positive 03/23/23 08:20 Antibody Screen Negative 03/23/23 08:20 Hematocrit 34.9 % (36-46) L 03/23/23 08:20 Hemoglobin 11.9 g/dL (12.0-16.0) L 03/23/23 08:20 Hepatitis B Surface Antigen Negative s/c (NEGATIVE) 11/01/22 12:04 Hepatitis C Antibody Negative s/c (NEGATIVE) 11/01/22 12:04 Rubella Antibody 260.0 IU/mL (>15) 11/01/22 12:04 Varicella-Zoster IgG Antibody 953 index (Immune >165) 11/01/22 12:04 Glucose 1 Hour 83 mg/dL (76-139) 12/20/22 06:33 Group B Streptococcus (PCR) Pos for grp b strep H 02/26/23 11:35 -: Chlamydia screen: negative, Gonorrhea screen: negative and Urine: negative -: PAP smear: Normal (04/07) Genetic Screens: Quad screen: Normal External Labs -: Urine: negative Prior (ies) Past Pregnancies Del. Date GA/Weeks Labor Lgth Wt Sex Route Outcome Anesthesia Place Delv Breastfeed Preg Comp Name 08/18/18 6 spontaneous 05/03/20 39.2 12 8 lb 15 oz Male vaginal live - full term [place], [place] just weaning as of 08/09/22 induced hyper- other [place] Delivery Date: 08/18/18 Last Updated by: Barbara Fuentes RN no complications, passed spontaneously Delivery Date: 05/03/20 Last Updated by: Barbara Fuentes RN hyperemesis gravidarum, needed regular infusions Evaluation Evaluation Baseline heart rate: 135 Variability: Moderate (11-25) monitor accelerations: Present Monitor Decelerations: Absent Contraction Frequency (minutes): 0 Dilation (cm): 4 Effacement (%): 75 station: -2 [facility] Medical History Anxiety Asthma (~2004) Chronic back pain (~2017) Easy bruisability Eczema (~1998) Fibromyalgia (~2017) Headache (~2015) Migraines (~2015) induced hypertension Vitiligo (~2019) Surgical History H/O lymph node biopsy Family History Father Deepika's disease Mother Hypertension Grandmother Hypertension Stroke Graves disease Aneurysm Grandfather Aneurysm Social History marital status: number of children: 1 household members: spouse and children lives independently: Yes housing: [facility] ([facility]) pets and animals: No education level: high school occupational status: unemployed current occupational exposures/hazards: No special rayna needs: No travel history: over 6 months ago seatbelt use: always water heater temp set < 120 deg: Yes working smoke detector in home: Yes fire extinguisher in home: Yes carbon monox detector in home: Yes firearms in home: Yes firearms unloaded and locked: Yes do you feel safe at home: Yes Smoking Status: Former smoker second hand exposure: No alcohol intake: former (rarely when not ) substance use type: does not use during the past year weight has: other (Wt has fluctuated, stable ~6 months at healthy weight) well-balanced diet: daily or most days daily servings fruits/ve-4 caffeine: Yes (1 cup/day, aware of 200 mg limit) Type(s) of exercise: walking Meds Home Medications and Allergies Home Medications Medication Instructions Recorded Confirmed Type levalbuterol tartrate 45 1 puff inhalation Q4-6H PRN 10/13/21 03/23/23 History mcg/actuation aerosol inhaler Shortness Of Breath (Xopenex HFA) Allergies Allergy/AdvReac Type Severity Reaction Status Date / Time ragweed pollen Allergy Intermediate tight Verified 03/17/23 14:31 chest OB Exam Narrative Exam Narrative: Generally: Patient is sitting up in bed, no acute distress Lungs: Clear to auscultation bilaterally Cardiovascular: Regular rate and rhythm Fundal height: 42 cm Estimated weight: 9-1/2 lb Extremities: 1+ edema Objective Labs 03/23/23 08:20 Assessment and Plan Assessment and Plan Assessment and Plan narrative: Assessment: 23-year-old 3 para 1 at 39 4/7 weeks' gestation for induction of labor due to LGA baby History of macrosomic infant Group B strep positive Plan: Ampicillin for GBS prophylaxis Pitocin per protocol Artificial rupture of membranes when able Epidural as necessary Expected management to spontaneous vaginal delivery Time Spent with Patient Total time spent with greater than 50% in coordination of care (as documented) at patient's floor/unit and/or counseling patient:: 15-24 minutes
[2023-03-23] MEDS: OXYTOCIN PREMIX 30 UNIT/500 ML PLAST..BAG IV (09:20)
[2023-03-23] MEDS: AMPICILLIN 1,000 MG in SODIUM CHLORIDE 0.9% 100 ML 200 MG IV ×2 (12:29→16:31)
--- NOTE | 2023-03-23 13:21 | PM.OBPNLAB ---
Date/Time Date Patient Seen: 03/23/23 Time Patient Seen: 12:37 Pain Control Pain control: tolerating well Pelvic Exam Dilation (cm): 5 Effacement (%): 75 station: -1 Amniotic membrane status: Intact Contractions Contractions on admission: none Monitor mode: External Pitocin rate (mU/min): 8 Contraction frequency (min): 3 Contraction duration (min): 1 Contraction pattern: Regular Contraction intensity: Mild Status status: Category l Heart Rate Baseline: 135 Monitor Accelerations: Present Monitor Decelerations: Absent Monitor Variability: Moderate Assessment and Plan Assessment: active labor Comments: AROM with clear amniotic fluid Con't prophylactic ATB for GBS Epidural prn Expectant management to
--- NOTE | 2023-03-23 18:22 | P.PCNOB_ITS ---
Events: Labor Induction Labor & Delivery Delivery date: 03/23/23 Cervical ripening method: none Induction method: per pitocin protocol Delivery augmentation: rupture of membranes Delivery monitor: external FHT and external uterine Route of delivery: Episiotomy description: None L&D Laceration Description: Labial (right, 1st degree) Delivery repair: chromic Quantitative Blood Loss: 125 Anesthesia Type: Local (for repair only) and None Complications: None Narrative: Patient complete and pushed for 30 minutes. At 5:00 p.m., a live male delivered spontaneously in the SOMMER presentation, over an intact perineum. No nuchal cord. The remainder of the body delivered and was placed on mom's abdomen. Pitocin was given in the IV fluids. The cord was double clamped and cut after the cord stopped pulsing. Cord bloods were obtained. The placenta delivered intact with a three-vessel cord at 5:12 p.m.. The fundus was massaged to firm. There was a right first-degree labial laceration which was repaired with 3-0 chromic in a running interlocking fashion after 6 cc of 1% lidocaine were injected. Hemostasis was achieved. QBL 125 cc. Apgars 9 at 1 minute and 10 at 5 minutes. weight: 9 lb 5.1 oz. . No analgesia except for the repair. Mom and stable to recovery. [place] Baby 1: Infant gender: Male Presentation: vertex Position: Right Occiput Anterior Placenta delivery description: Spontaneous Cord Vessel Description: 3 Vessels score (1 min): 9 score (5 min): 10 Plan for aftercare: Routine care
[2023-03-23] MEDS: DERMOPLAST SPRAY 20% 60 ML 1 SPRAY TOP (19:18)
[2023-03-23] MEDS: ACETAMINOPHEN 325 MG TABLET 650 MG PO (19:18)
[2023-03-23] MEDS: IBUPROFEN 600 MG TABLET PO (19:19)
[2023-03-24 06:32] LABS: Hematocrit 32.3 % (36-46)
[2023-03-24] MEDS: ACETAMINOPHEN 325 MG TABLET 650 MG PO (09:06)
[2023-03-24] MEDS: DOCUSATE 100 MG CAPSULE PO (09:07)
[2023-03-24] MEDS: IBUPROFEN 600 MG TABLET PO (09:07)
[2023-03-24] MEDS: PRENATAL VIT,CALC/IRON/FOLIC 1 TABLET 1 TAB PO (09:07)
--- NOTE | 2023-03-24 11:31 | PM.OBDS.1 ---
Discharge Providers Provider Date of admission: 03/23/23 07:31 Discharge Date: 03/24/23 Primary care physician: LEXIS Wolf Consults: 03/23/23 07:34 Consult to Anesthesiology Urgent Comment: Consulting Provider: Anesthesiologist Reason for consultation: Epidural Has provider been notified: No 03/24/23 18:24 Consult to Scarf Gluer Routine Comment: Discharge provider: Bhavna Jett MD Summary Hospital Course Date Patient Seen: 03/24/23 Time Patient Seen: 07:35 Diagnoses: 39-4/7 weeks gestation History of macrosomic infant LGA baby this Induction of labor with Pitocin Artificial rupture of membranes Spontaneous vaginal delivery Hospital Course: Patient is a 23-year-old 3 para 2 who presented on March 23, 2023 for a scheduled induction of labor at 39-,4/7 weeks gestation. She was started on Pitocin. Artificial rupture of membranes was performed at 5 cm. She progressed to complete dilation and had a spontaneous vaginal delivery without complication. She had a right labial tear which was repaired. Her course was unremarkable. She is discharged home on day #1. Peripartum Data Delivery Method: Natural Vaginal Laceration Description: Labial (Right) Episiotomy description: None Procedures: Pitocin induction of labor Artificial rupture of membranes Spontaneous vaginal delivery Right labial laceration repair complications: none [place] 1: Gender: Male Disposition of : home Status at Discharge Cognitive/behavioral status at discharge: oriented Functional status at discharge: independent ambulation Overall status at discharge: patient is progressing back to baseline Time Spent with Patient Time attestation: Total time spent providing and/or coordinating discharge services: Time spent: Less than 30 minutes Objective Labs 03/24/23 06:24 Labs: Laboratory Results - last 24 hr 03/23/23 03/24/23 08:20 06:24 Hgb 11.0 L Hct 32.3 L Blood Type AB Positive Antibody Screen Negative Exam Narrative Exam Narrative: Generally: Patient is sitting up in bed, holding , no acute distress Fundus: Firm at U Extremities: No edema, negative Homans Discharge Plan Discharge Plan Patient Disposition: Home Provider Discharge Comment: Call with fever, chills, or bleeding vaginally more than a pad in an hour Ibuprofen 600 mg every 6 hours as needed for cramping Tylenol 650 mg every 6 hours as needed for pain Push oral fluids Discharge orders & Medications Prescriptions: Continued levalbuterol tartrate [Xopenex HFA] 45 mcg/actuation HFA aerosol inhaler 1 puff inhalation Q4-6H PRN (Reason: Shortness Of Breath) Follow up/Referrals: Bhavna Jett MD [Physician] - 05/03/23 1:15 pm (Please follow up with Dr. Jett for your 6 week follow up appointment ) Diet/Activity/Treatments Diet: Regular Activity: Nothing in the vagina for 6 weeks Visit Report/Discharge Packet Instructions: DI for Labor and Delivery, Vaginal Stand Alone Forms: Patient Portal/API, Stroke Signs & Symptoms Discharge Data Primary Care Provider: Nathan Anders
[2023-03-24 12:30] VITALS: BP 131/79; PULSE 68; RESP 14; TEMP 37.2
[2023-03-24 12:34] VITALS: BP 131/79; PULSE 68; RESP 14; TEMP 37.2
== END 2023-03-24 13:20 | disposition home or self-care (01) | DRG 807 ==
PROVIDERS: Admitting Provider Obstetrics & Gynecology; Family Provider Registered Nurse Diabetes Educator; PCP Registered Nurse Diabetes Educator; Referring Provider Obstetrics & Gynecology; Visit Provider Obstetrics & Gynecology
DX: O36.63X0 Maternal care for excessive fetal growth, third trimester, not applicable or unspecified (principal); Z37.0 Single live birth; O99.824 Streptococcus B carrier state complicating childbirth; O70.0 First degree perineal laceration during delivery; Z67.30 Type AB blood, Rh positive; Z3A.39 39 weeks gestation of pregnancy
CPT/HCPCS: 36415; 59050; 59400; 85014; 85018; 85025; 86850; 86900; 86901; G0379; J0290; J2590

== ENCOUNTER 2024-02-06 04:53 | Emergency (ER) | payer OTHER, SELFPAY ==
[2024-02-06 05:01] VITALS: BP 127/76; PULSE 92; RESP 16; TEMP 36.7; O2SAT 95; BMI 23.1
--- NOTE | 2024-02-06 05:09 | ED.URI ---
HPI - URI/Sore Throat General Chief Complaint: Upper Respiratory Symptoms Stated Complaint: head pressure, congestited, shaky, nausea Time Seen by Provider: 02/06/24 05:09 Source: patient Mode of arrival: Ambulatory History of Present Illness HPI Narrative: 24-year-old female with reported history of asthma, has home inhalers to use, now with 4 days duration of cough, sinus congestion, sore throat, sinus pain, taking Tylenol. Asthma symptoms seemed well controlled, not feeling wheezy or shortness of breath in particular. Feels that her asthma is well controlled, denies chest pain excpet with cough. No known recent close contact exposure to persons with knwon Covid, or with upper respiratory symptoms. . MD Complaint: cough, sore throat, nasal congestion and sinus pain Related Data Home Medications Medication Instructions Recorded Confirmed levalbuterol tartrate 45 1 puff inhalation Q4-6H PRN 10/13/21 03/23/23 mcg/actuation aerosol inhaler Shortness Of Breath (Xopenex HFA) Previous Rx's Medication Instructions Recorded bupropion HCl 150 mg 24 hr tablet, 150 mg PO QAM #60 tabs 07/20/23 extended release Allergies Allergy/AdvReac Type Severity Reaction Status Date / Time ragweed pollen Allergy Intermediate tight Verified 03/17/23 14:31 chest Review of Systems Review of Systems ROS Unobtainable: All systems reviewed & are unremarkable except as noted in HPI and below Patient History Medical History Anxiety Asthma (~2004) Chronic back pain (~2017) Easy bruisability Eczema (~1998) Fibromyalgia (~2017) Headache (~2015) Migraines (~2015) induced hypertension Vitiligo (~2019) Surgical History H/O lymph node biopsy Family History Father Deepika's disease Mother Hypertension Grandmother Hypertension Stroke Graves disease Aneurysm Grandfather Aneurysm Social History marital status: number of children: 1 household members: spouse and children lives independently: Yes housing: condominium ([facility]) pets and animals: No education level: high school occupational status: unemployed current occupational exposures/hazards: No special rayna needs: No travel history: over 6 months ago seatbelt use: always water heater temp set < 120 deg: Yes working smoke detector in home: Yes fire extinguisher in home: Yes carbon monox detector in home: Yes firearms in home: Yes firearms unloaded and locked: Yes do you feel safe at home: Yes Smoking Status: Former smoker second hand exposure: No alcohol intake: former (rarely when not ) substance use type: does not use during the past year weight has: other (Wt has fluctuated, stable ~6 months at healthy weight) well-balanced diet: daily or most days daily servings fruits/ve-4 caffeine: Yes (1 cup/day, aware of 200 mg limit) Type(s) of exercise: walking Smoking Status: Former smoker alcohol intake frequency: holidays/special occasions only Substance Use Type: does not use Exam Narrative Exam Narrative: GENERAL: Well-developed patient, in mild distress. HEAD: Atraumatic. Normocephalic. EYES: Pupils equal round and reactive. Extraocular motions intact. No scleral icterus. No injection or drainage. ENT: Nose without bleeding, purulent drainage. Throat without erythema, tonsillar hypertrophy or exudate. Airway patent. NECK: Trachea midline. Non tender CARDIOVASCULAR: Regular rate and rhythm without murmurs, gallops, or rubs. RESPIRATORY: Clear to auscultation. Breath sounds equal bilaterally. No wheezes, rales, or rhonchi. GASTROINTESTINAL: Abdomen soft, non-tender, nondistended. EXTREMITIES: No edema or joint tenderness. BACK: Nontender without deformity or crepitance. No flank tenderness. NEURO: AOx3. SKIN: No rash or erythema of visible areas Initial Vital Signs Initial Vital Signs: Vital Signs Temperature 98.0 F 02/06/24 05:01 Pulse Rate 92 H 02/06/24 05:01 Respiratory Rate 16 02/06/24 05:01 Blood Pressure 127/76 02/06/24 05:01 Pulse Oximetry 95 02/06/24 05:01 Oxygen Delivery Method Room Air 02/06/24 05:01 Course Orders Ordered: Discontinued Medications Ondansetron HCl (Ondansetron 4 Mg Odt) 4 mg SL NOW ONE Stop: 02/06/24 04:59 Last Admin: 02/06/24 05:21 Dose: 4 mg Documented By: TITUS Vital Signs Vital signs: Vital Signs - 8 hr 02/06/24 05:01 Temperature 98.0 F Pulse Rate 92 H Respiratory Rate 16 Blood Pressure 127/76 Pulse Oximetry 95 Oxygen Delivery Method Room Air MDM - URI/Sore Throat Lab Data Attestation: I reviewed the patient's lab results. Labs: Lab Results 02/06/24 Range/Units 05:11 SARS-CoV-2 (PCR) Negative (Negative) Influenza A (RT-PCR) Flu a positive H (NEGATIVE) Influenza B (RT-PCR) Flu b negative (NEGATIVE) RSV (PCR) Negative (Negative) Group A Strep (PCR) Negative (Negative) MDM Narrative Medical decision making narrative: Recent cough nasal congestion, discussed flu/COVID testing, patient interested in screening. Afebrile, history of asthma, no wheezing with good air movement, no respiratory distress, no intercostal retractions, speaks in full sentences. COVID negative. Flu B negative, flu A positive. Strep screen done from triage was negative. Patient informed of her test results, however her symptoms are greater than 48-72 hours, Tamiflu not likely to change clincial course now. Symptomatic treatment, [id number] Afrin decongestant as needed up to 3 days use. Tylenol and or Motrin as needed for symptom control. Antibiotics not indicated for sinus congestion, her discomfort less than 10 days. Patient informed of test results and treatment plan as an outpatient. Stable for discharge Discharge Plan Departure Patient Disposition: Home Clinical Impression: Influenza A, Nasal congestion Instructions: DI for Viral Upper Respiratory Infection -- Adult Activity Restrictions/Additional Instructions: Recent 4-5 days cough, nasal congestion symptoms. Flu swab positive for type A infection, negative for flu B infection, negative for COVID infection. Symptoms greater than 72 hours, oral Tamiflu anti flu medication not very effective at this stage of illness, not would not change course of illness. Consider use of [id number] Afrin nasal spray to help with decongestant, might help with nasal congestion symptoms, if 1 spray each side used for up to maximum 3 days. Take Tylenol and or Motrin as needed for symptomatic treatment of muscle aches and fever symptoms. Sinusitis treatment with antibiotics not indicated at just 5 days of illness, could be considered if symptoms persist greater than 10 days. Drink plenty of fluids. Recheck symptoms with your regular doctor if not improving in the next 2-3 days. Return to this/nearest emergency department for any change worsening symptoms or any concerns prior Prescriptions: No Action levalbuterol tartrate [Xopenex HFA] 45 mcg/actuation HFA aerosol inhaler 1 puff inhalation Q4-6H PRN (Reason: Shortness Of Breath) bupropion HCl 150 mg tablet extended release 24 hr 150 mg PO QAM Qty: 60 2RF Rx Instructions: After 3 days if inadequate effect and no side effects increase to 2 tabs daily Referrals: Nathan Anders ARNP [Primary Care Provider] - Stand Alone Forms: Patient Portal/API
[2024-02-06] MEDS: ONDANSETRON 4 MG ODT SL (05:21)
[2024-02-06 05:36] LABS: Strep Grp A by PCR Rapid Negative (Negative)
[2024-02-06 06:04] LABS: Influenza A - CEPHEID Flu A POSITIVE (NEGATIVE); Influenza B - CEPHEID Flu B NEGATIVE (NEGATIVE); Respiratory Syncytial Virus Negative (Negative)
[2024-02-06 06:09] LABS: COVID-19 CEPHEID 4-PLEX PCR Negative (Negative)
[2024-02-06 06:42] VITALS: BP 122/74; PULSE 76; RESP 16; TEMP 36.6; O2SAT 98
== END 2024-02-06 06:43 | disposition home or self-care (01) ==
PROVIDERS: Emergency Provider Emergency Medicine; Family Provider Registered Nurse Diabetes Educator; PCP Registered Nurse Diabetes Educator
DX: J10.1 Influenza due to other identified influenza virus with other respiratory manifestations (principal); Z87.891 Personal history of nicotine dependence
CPT/HCPCS: 0241U; 87651; 99283